=== PATIENT | female | born 1940 | race Caucasian/White ===

== ENCOUNTER 2019-07-04 06:43 | Day surgery (SDC) | payer MEDICARE, OTHER ==
[~2019-07-04] VITALS: Ht 152.4 cm; Wt 59.3 kg
[2019-07-04 07:17] VITALS: BP 148/62; PULSE 61; TEMP 96.9
[2019-07-04 07:20] LABS: HEMOGLOBIN 11.1 g/dl (12.5-16.0); MEAN CELL VOLUME 94 fl (80.0-100.0); MEAN CORPUSCULAR HEMOGLOBIN 30 pg (27.0-31.0); MEAN CORPUSCULAR HGB CONC 32 g/dl (33.0-37.0); MEAN PLATELET VOLUME 11.3 fl (7.4-10.4); PLATELET COUNT 147 K/mm3 (130-400); RED BLOOD COUNT 3.74 M/mm3 (4.10-5.30)
[2019-07-04 07:22] LABS: HEMATOCRIT 35.2 % (37.0-47.0)
[2019-07-04] MEDS ORDERED: LIPITOR 80MG80 MG PO (07:25)
[2019-07-04] MEDS ORDERED: LASIX 40MG TABL40 MG PO (07:25)
[2019-07-04] MEDS ORDERED: COREG CR80 MG PO (07:27)
[2019-07-04] MEDS ORDERED: TRADJENTA5 MG PO (07:27)
[2019-07-04] MEDS ORDERED: NORVASC 10MG10 MG PO (07:28)
[2019-07-04] MEDS ORDERED: OSTEO-BI-FLEX 21 TAB PO (07:28)
[2019-07-04] MEDS ORDERED: ZESTRIL 10MG10 MG PO (07:28)
[2019-07-04] MEDS ORDERED: CITRACAL + D CA1 TAB PO (07:30)
[2019-07-04] MEDS ORDERED: OMEGA-3 1000 MG1 CAP PO (07:32)
[2019-07-04] MEDS ORDERED: CRANBERRY FRUI425 MG PO (07:32)
[2019-07-04 07:33] LABS: CALCIUM 9.9 mg/dL (8.4-10.2); CREATININE, serum 1.77 (0.52-1.25); POTASSIUM 4.8 mmol/L (3.4-5.0)
[2019-07-04] MEDS ORDERED: VITAMIN E 400 U4001 PO (07:33)
[2019-07-04] MEDS ORDERED: ASPIRIN 81M81 MG/TA2 PO (07:34)
[2019-07-04] MEDS ORDERED: VITAMIN D31000 I1 PO (07:34)
[2019-07-04 09:09] VITALS: BP 147/57; PULSE 60
--- NOTE | 2019-07-04 09:15 | NUR ---
SEE MERGE DOCUMENTATION FOR MEDICATION ADMINISTRATION TIMES AND INTRA/POST PROCEDURE SEDATION ASSESSMENTS.
[2019-07-04] MEDS ORDERED: CEPHALEXIN500 M1 PO ×2 (09:46→09:50)
[2019-07-04 10:10] VITALS: BP 144/78; PULSE 60; TEMP 98.2
[2019-07-04 10:40] VITALS: BP 152/65; PULSE 73; TEMP 97.2
--- NOTE | 2019-07-04 11:10 | NUR ---
Back from laboratory manager. Dressing to left upper chest CD&I. VSS. bedside
[2019-07-04 11:40] VITALS: BP 142/50; PULSE 64; TEMP 97.2
[2019-07-04 12:15] VITALS: BP 135/49; PULSE 70; TEMP 97.2
--- NOTE | 2019-07-04 12:15 | NUR ---
INT discontinued intact by RN student. VSS. Discharge instructions given. Transferred to private car by han
== END 2019-07-04 12:16 | disposition home or self-care (01) ==
LOC: COL.CAR 06:43
PROVIDERS: Internal Medicine Cardiovascular Disease
DX: Z45.010 Encounter for checking and testing of cardiac pacemaker pulse generator [battery] (principal); I42.8 Other cardiomyopathies; I50.30 Unspecified diastolic (congestive) heart failure; I34.0 Nonrheumatic mitral (valve) insufficiency; E78.2 Mixed hyperlipidemia; I15.0 Renovascular hypertension; Z79.899 Other long term (current) drug therapy; Z79.82 Long term (current) use of aspirin; Z82.49 Family history of ischemic heart disease and other diseases of the circulatory system; Z87.891 Personal history of nicotine dependence
CPT/HCPCS: C1882; J0690; J2250; J3010; J7040